=== PATIENT | male | born 1935 | race Caucasian/White ===

== ENCOUNTER 2017-05-30 17:53 | Emergency (ER) | payer MEDICARE, OTHER ==
--- NOTE | ~2017-05-30 | ER ---
PATIENT'S NAME: [facility] AGE: 82 Y [address] ROOM: [place] [id number] LOCATION: [facility] ADMIT DATE: 05/30/2017 ER/Outpatient Report DISCHARGE DATE: 05/30/2017 FAMILY PHYSICIAN: Chevy Kelley MD ATTENDING PHYSICIAN: Nayan Mcgregor Time of Arrival: 1804 hours. Time of Evaluation: 1804 hours. CHIEF COMPLAINT: Constipation. HISTORY OF PRESENT ILLNESS: The patient states he is unsure when the last time he had a bowel movement. He thinks it was at least 3 or 4 days ago. He just feels like he needs to have a bowel movement. He did do an enema at home just prior to arrival with smaller amount of results. He states he has not had any nausea. No vomiting. No fever. No chills. No abdominal pain. Does not have any change in his bladder pattern. ALLERGIES: NO KNOWN ALLERGIES. CURRENT MEDICATIONS: On his chart and reviewed by me. PAST MEDICAL HISTORY: Hypertension. PAST SURGICAL HISTORY: Prostatectomy, skin cancer. SOCIAL HISTORY: Lives at home. Denies use of tobacco, drugs, or alcohol. REVIEW OF SYSTEMS: All negative other than those mentioned in the HPI. PHYSICAL EXAMINATION: VITAL SIGNS: He weighed 86.7 kg. Blood pressure is 179/93, pulse of 108, respirations 16, temperature of 97.6 tympanic, O2 saturation is 95% on room air. GENERAL: He is awake, alert, and oriented x4. SKIN: [place], warm, and dry. RESPIRATIONS: Even and nonlabored. Lung sounds are clear throughout. PATIENT'S NAME: [facility] AGE: 82 Y [address] ROOM: [place], [place] [address] LOCATION: [facility] ADMIT DATE: 05/30/2017 ER/Outpatient Report DISCHARGE DATE: 05/30/2017 FAMILY PHYSICIAN: Chevy Kelley MD ATTENDING PHYSICIAN: Nayan Mcgregor HEART: Regular rate and rhythm. ABDOMEN: Soft and nondistended. Bowel sounds are present. IMAGING: Three-way abdominal x-ray was completed. It shows a diffuse stool pattern consistent with constipation. No blockages noted. IMPRESSION: Constipation. PLAN: Home, rest. Increase the fluids. A bottle of magnesium citrate was sent home with the patient to drink tonight. If he continues to have problems in the next 24-48 hours, he is to follow up with his primary provider. He verbalized understanding. DARLING MIN APRN FOR MD SARINA PITTMAN/roberto /[id number] d: 05/31/17 0106 t: 06/14/17 0950, OUTPATIENT REPORT
== END 2017-05-30 19:04 | disposition disaster alternative care site (69) ==
LOC: GMED 17:53
DX: K59.00 Constipation, unspecified (principal); I10 Essential (primary) hypertension; Z85.828 Personal history of other malignant neoplasm of skin; Z98.890 Other specified postprocedural states; Z79.899 Other long term (current) drug therapy